=== PATIENT | male | born 2000 | race Caucasian/White ===

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

== ENCOUNTER 2022-07-12 10:51 | Emergency (ER) | payer OTHER, SELFPAY ==
[2022-07-12 11:04] VITALS: BP 100/63; PULSE 77; RESP 16; TEMP 36.7; O2SAT 99; BMI 23.0
[2022-07-12 12:35] LABS: Appearance Urine Clear; Color Urine Yellow; Glucose Urine UA Negative (Negative); Leukocyte Esterase Urine Negative (Negative); Nitrite Urine Negative (Negative); Specific Gravity - Urine 1.025 (1.005-1.025); Urine Blood Negative (Negative); Urine Ketones Negative (Negative); Urine Protein Negative (Neg-Trace)
--- NOTE | 2022-07-12 13:02 | ED.MALEGU ---
HPI - Male Genitourinary General Chief complaint: Urogenital-Male Stated complaint: testicle pain Time Seen by Provider: 07/12/22 12:12 Source: patient Mode of arrival: ambulatory Limitations: no limitations History of Present Illness HPI Narrative: Patient presents to the emergency department for evaluation of left testicular pain and swelling for about 2 days. Per his report, ejaculations has been more thick than normal, but denies any abnormal penile discharge outside of ejaculation. Denies fevers, chills, abdominal pain, nausea, vomiting. Patient does report that a few months ago he was treated for a gonorrhea infection. He is currently sexually active with reportedly 1 partner, who was also previously treated for gonorrhea infection. He states a few days ago that his significant other accidentally kneed him in the scrotum and it was very painful at that time. Related Data Previous Rx's Medication Instructions Recorded doxycycline hyclate 100 mg capsule 100 mg PO BID 10 days #20 caps 09/26/21 doxycycline hyclate 100 mg tablet 100 mg PO BID 7 days #14 tabs 07/12/22 Allergies Allergy/AdvReac Type Severity Reaction Status Date / Time No Known Allergies Allergy Verified 09/26/21 19:09 Review of Systems Review of Systems: Constitutional: No fever, chills, weakness or fatigue. Skin: No rash or itching. Cardiovascular: No chest pain, Respiratory: No shortness of breath, or cough Gastrointestinal: No nausea, vomiting or diarrhea. No abdominal pain Genitourinary: No burning micturition. No urinary frequency or incontinence. Positive testicular pain and swelling Musculoskeletal: No muscle pain, back pain, joint pain or stiffness. Psychiatric: No depression or anxiety. Yes all other systems are reviewed and are negative [facility] Past Medical History Attestation statement: The following information was validated with the patient. Source: old records reviewed Social History Social History Advance Directives: No Advance Directives Information Provided: No Physical Exam Vital Signs: Vital Signs: Last Vital Signs Temp 98.1 F 07/12/22 11:04 Pulse 77 07/12/22 11:04 Resp 16 07/12/22 11:04 BP 100/63 07/12/22 11:04 Pulse Ox 99 07/12/22 11:04 O2 Del Method 07/12/22 11:04 BMI result Body Mass Index 23.0 Appearance: Alert.?Oriented to person, place and time. No acute distress.?Normal affect. Eyes: Pupils equal, round and reactive to light.? ENT: Pharynx normal.?? Neck: Normal inspection.? Neck supple.?? CVS: Heart sounds normal. Normal heart rate and rhythm.? Pulses normal.?? Respiratory: No respiratory distress.? Lung sounds clear to auscultation bilaterally?? Abdomen: Soft and non-tender. Normoactive bowel sounds. Genitourinary: Exam performed with ED tach for reimbursement analystSatish. Swelling to the left side of scrotum without external erythema or warmth. Phren sign is positive, cremasteric reflex is positive. No lesions, rashes Skin: Skin warm and dry.? Normal skin color.? ? Extremities: No lower extremity edema.? Neuro: Moves all extremities spontaneously. Sensation intact bilaterally. Ambulates with normal steady gait. Course Course Course Narrative: Patient is a 21-year-old male with a past medical history of sexually transmitted infection. Presenting to emergency department for evaluation of left testicular pain and swelling. He is overall well-appearing. Vital signs are stable he is afebrile and non tachycardic. Urinalysis reveals no evidence of urinary tract infection. Ultrasound reveals mildly edematous and enlarged left epididymal tail with hyperemia suspicious for epididymitis, no evidence of torsion. Discussed with patient common causes of epididymitis include being sexually transmitted infection, trauma, autoimmune. Given patient's recent history of sexually transmitted infection, discussed with patient plan of care for prophylactic treatment of gonorrhea and chlamydia. Patient received injection of ceftriaxone intramuscularly while in the emergency department, and will be discharged home with a prescription for doxycycline. Urinalysis reveals no evidence of urinary tract infection. Discussed supportive care, NSAIDs. Reviewed worrisome signs and symptoms to return back to the emergency department for. Advised outpatient follow-up with primary care provider. All questions were answered, patient was discharged home in stable condition. [facility] - Male Genitourinary Medical Records Attestation: I reviewed the patient's medical records. Lab Data Attestation: I reviewed the patient's lab results. Labs: Lab Results 07/12/22 Range/Units 12:25 Urine Color Yellow Urine Appearance Clear Urine pH 8.0 (5.0-9.0) Ur Specific [place] 1.025 (1.005-1.025) Urine Protein Negative (Neg-Trace) mg/dL Urine Glucose (UA) Negative (Negative) mg/dL Urine Ketones Negative (Negative) mg/dL Urine Blood Negative (Negative) Urine Nitrite Negative (Negative) Ur Leukocyte Esterase Negative (Negative) Imaging Data testicular ultrasound: Radiologist's impression: US/US scrotum doppler IMPRESSION: ? 1. Mildly edematous and enlarged left epididymal tail with hyperemia on color Doppler assessment, suspicious for epididymitis. 2. Right epididymis normal. 3. Bilateral testicles normal. Discharge Plan Discharge Clinical Impression: Acute epididymitis Patient Disposition: Home, Self-Care Instructions: Epididymitis (ED) Additional Instructions: Your urine sample does not show evidence of a UTI/urinary tract infection. Testing for gonorrhea and chlamydia results will be available in 1-3 days. You were treated today with an injection of ceftriaxone, and will complete a 1 week course of doxycycline, this is to cover both chlamydia and gonorrhea infection. As discussed, please wear supportive undergarments to help alleviate pain and pressure to the scrotum. You can take ibuprofen 200 mg, 3 tablets (600mg) every 6-8 hours as needed for pain, in addition to Tylenol 500 mg, 2 tablets (1,000mg) every 4-6 hours as needed for pain, but not to exceed 3 doses daily (3,000mg).? Return to emergency department with any new or worsening symptoms or concerns. Follow-up with your primary care provider next week. Prescriptions: New doxycycline hyclate 100 mg tablet 100 mg PO BID 7 Days Qty: 14 0RF No Action doxycycline hyclate 100 mg capsule 100 mg PO BID 10 Days Qty: 20 0RF Interventions: ED Discharge Assessment Last Done: 07/12/22 13:48 Discharge Date/Time: 07/12/22 13:48
[2022-07-12] MEDS: cefTRIAXone sodium 500 MG, Lidocaine HCl 1 % MPF 1 ML IM (13:28)
[2022-07-13 07:12] LABS: CT PCR DETECTED (Not Detect.); NG PCR NOT DETECTED (Not Detect.)
== END 2022-07-12 13:48 | disposition home or self-care (01) ==
PROVIDERS: Nurse Practitioner Family; Emergency Provider Emergency Medicine
DX: N45.1 Epididymitis (principal); N50.812 Left testicular pain
CPT/HCPCS: 76870; 81003; 87491; 87591; 93975; 96372; 99282; 99284; J0696

== ENCOUNTER 2022-07-14 15:13 | Emergency (ER) | payer OTHER, SELFPAY ==
--- NOTE | ~2022-07-14 | US_ITS ---
EXAMINATION: US SCROTUM CLINICAL INFORMATION: Testicular pain and swelling.. COMPARISON: None TECHNIQUE: A sonogram of the scrotum was performed assessing roblero-scale appearance and color Doppler flow. Spectral Doppler analysis of the arterial and venous flow were performed in the testes bilaterally. FINDINGS: RIGHT: Right testicle measures 4.9 x 2.8 x 2.2 cm, volume 23.2 mL. No focal testicular parenchymal lesions are visualized. Spectral Doppler analysis of the arterial and venous flow is normal in the right testis. Right epididymal head is normal in size. No right hydrocele or varicocele is seen. Right epididymal Doppler flow is normal. LEFT: Left testicle measures 4.5 x 2.8 x 2.7 cm, volume 17.8 mL. The left ovary is slightly heterogeneous but no focal lesion seen. Spectral Doppler analysis of the arterial and venous flow is increased in the left testis. Left epididymal head is normal in size. There is epidural head cyst measuring 4 x 3 x 4 mm. No left hydrocele or varicocele is seen. Left epididymal Doppler flow is increased. US/US scrotum doppler IMPRESSION: Increased vascularity left testes and left epididymis suggestive of epididymoorchitis. Small left epididymal head cysts. Normal right testes and epididymis. Normal Doppler exam of the right testes.
--- NOTE | ~2022-07-14 | US_ITS ---
EXAMINATION: US SCROTUM CLINICAL INFORMATION: Testicular pain and swelling.. COMPARISON: None TECHNIQUE: A sonogram of the scrotum was performed assessing roblero-scale appearance and color Doppler flow. Spectral Doppler analysis of the arterial and venous flow were performed in the testes bilaterally. FINDINGS: RIGHT: Right testicle measures 4.9 x 2.8 x 2.2 cm, volume 23.2 mL. No focal testicular parenchymal lesions are visualized. Spectral Doppler analysis of the arterial and venous flow is normal in the right testis. Right epididymal head is normal in size. No right hydrocele or varicocele is seen. Right epididymal Doppler flow is normal. LEFT: Left testicle measures 4.5 x 2.8 x 2.7 cm, volume 17.8 mL. The left ovary is slightly heterogeneous but no focal lesion seen. Spectral Doppler analysis of the arterial and venous flow is increased in the left testis. Left epididymal head is normal in size. There is epidural head cyst measuring 4 x 3 x 4 mm. No left hydrocele or varicocele is seen. Left epididymal Doppler flow is increased. US/US scrotum IMPRESSION: Increased vascularity left testes and left epididymis suggestive of epididymoorchitis. Small left epididymal head cysts. Normal right testes and epididymis. Normal Doppler exam of the right testes.
[2022-07-14 15:38] VITALS: BP 118/57; PULSE 85; RESP 20; TEMP 37.2; O2SAT 98; BMI 23.0
--- NOTE | 2022-07-14 17:20 | ED_ITS ---
HPI - Male Genitourinary General Chief complaint: Urogenital-Male Stated complaint: Testicle swelling Time Seen by Provider: 07/14/22 17:19 Source: patient Mode of arrival: ambulatory Limitations: no limitations History of Present Illness HPI Narrative: 21-year-old male presenting to the emergency department for the 2nd time in a week with complaints of testicular swelling and discomfort. Patient was recently evaluated in our emergency department told that he had epididymitis, was given a shot and discharged home on antibiotic which he tells me he is not taking. Patient tells me the pain continues and it is not getting better. Patient denies penile discharge, urinary frequency, urgency, dysuria, fevers, chills, abdominal pain, nausea, vomiting, chest pain, shortness of breath. Patient does have a history of chlamydia back in September of 2021. Initially he contributed this discomfort to someone kneeling him in the scrotum. Related Data Previous Rx's Medication Instructions Recorded doxycycline hyclate 100 mg capsule 100 mg PO BID 10 days #20 caps 09/26/21 doxycycline hyclate 100 mg tablet 100 mg PO BID 7 days #14 tabs 07/12/22 doxycycline hyclate 100 mg capsule 100 mg PO BID 7 days #14 caps 07/14/22 metronidazole 500 mg tablet 500 mg PO BID 7 days #14 tabs 07/14/22 Allergies Allergy/AdvReac Type Severity Reaction Status Date / Time No Known Allergies Allergy Verified 09/26/21 19:09 Review of Systems Review of Systems: Constitutional : No Weight loss, No Fever, No Chills, No Fatigue, No Malaise ENT/Mouth : No sore throat, No Rhinorrhea Eyes: No Eye Pain, No Swelling, No Redness Cardiovascular : No Chest Pain, No SOB, No Dyspnea on Exertion, No Orthopnea, No Edema, No Palpitations Respiratory : No Cough, No Sputum, No Wheezing Gastrointestinal : No Nausea, No Vomiting, No Diarrhea, No Constipation, No abdominal Pain, No Hematochezia, No Melena Genitourinary : No Dysuria, No Urinary Frequency, No Hematuria, + testicular swelling Musculoskeletal : No joint pain, No Myalgias, No Joint Swelling Skin : No Skin Lesions, No rash Neuro : No Weakness, No Numbness, No Dizziness, No Headache Psych : No Anxiety/Panic, No Depression All other systems reviewed and are negative Yes all other systems are reviewed and are negative [facility] Past Medical History Attestation statement: The following information was validated with the patient. Source: old records reviewed and nursing notes reviewed Social History Social History Advance Directives: No Advance Directives Information Provided: No Physical Exam Vital Signs: Vital Signs: Last Vital Signs Temp 98.8 F 07/14/22 17: Pulse 93 07/14/22 17:22 Resp 18 07/14/22 17:22 BP 150/83 H 07/14/22 17:22 Pulse Ox 99 07/14/22 17:22 O2 Del Method 07/14/22 17:22 BMI result Body Mass Index 23.0 vss Appearance: Alert.? Oriented X3.? No acute distress.? Head: Normocephalic, atraumatic, no step-offs or deformities Eyes: Pupils equal, round and reactive to light.? ENT: Pharynx normal.? Neck: Normal inspection.? Neck supple.? CVS: Normal heart rate and rhythm.? Pulses normal.? Respiratory: No respiratory distress.? Breath sounds normal.? Abdomen: Soft and nontender.? Skin: Skin warm and dry.? Normal skin color.? Normal skin turgor.? Extremities: No lower extremity edema.? No calf ttp. 5/5 strength to bilateral upper and lower extremities Sensative: ?Swelling to the left side of scrotum without external erythema or warmth. Phren sign is positive, cremasteric reflex is positive.? No lesions, rashes Neuro: Oriented X 3.? No motor deficit.? No sensory deficit. CN 2-12 intact Course Reevaluation(s) Reevaluation #1: Upon review serology it is noted that on 07/12/2022 patient had chlamydia and gonorrhea studies done, patient noted to be positive for chlamydia. However again, patient not taking his doxycycline therefore likely patient is still having symptoms. Time: 17:26 Reevaluation #2: US scrotum pending. Time: 17:30 Reevaluation #3: US consistent with epididymal orchitis and a left epididymal head cyst. No signs of torsion. Normal right testes and epididymis. Patient will be discharged home with doxycycline, metronidazole, advised to take ibuprofen every 6 hours, Tylenol every 4 as needed for pain or discomfort. Comfortable with discharge home with prompt PCP follow-up. Will also give him follow-up with urology in case needed. Time: 18:48 MDM - Male Genitourinary MDM Narrative Medical decision making narrative: 1723 21 year old male presents w/ persistent testicular discomfort and swelling X6 days. Was dx with epididymitis was given ceftriaxone and doxycycline for home however patient has not been compliant with the doxycycline. Based off of chart review patient had a scrotal ultrasound done which is normal on 07/12/2022, was given ceftriaxone here I a.m. and was given doxycycline for home however patient reports he is not currently taking that. Patient does have a remote history of chlamydia was diagnosed with chlamydia 09/26/2021. Patient was discharged physical examination significant for ?Swelling to the left side of scrotum without external erythema or warmth. Phren sign is positive, cremasteric reflex is positive.? No lesions, rashes plan at this time is ultrasound to rule out torsion, although he had a negative ultrasound a few days ago it is still possible that patient may have intermittent torsion. Medical Records Attestation: I reviewed the patient's medical records. Lab Data Attestation: I reviewed the patient's lab results. Critical Care Time Critical Care Time Critical Care Time: No Discharge Plan Discharge Clinical Impression: Epididymitis, Chlamydia, Acute epididymo-orchitis Patient Disposition: Home, Self-Care Instructions: Epididymitis (ED) Additional Instructions: Take your medications as prescribed. If you were prescribed antibiotics today, it is important that you take your medication to their entirety, do not skip any doses, do not finish them early. Follow-up with your primary care provider this week. Return to the emergency department with new or worsening symptoms. Such as fevers, chills, chest pain, shortness of breath, nausea, vomiting, dizziness, headache, vision changes, lethargy In case of emergency call 911 Doxycycline has been sent to her pharmacy, this covers for chlamydia, you must take this medication. Metronidazole as another antibiotic that has been sent to your pharmacy in this covers for another at sexually transmitted infection that is very common called Trichomonas. In the meantime you should practice abst inence from sex or wear protection if your going to have intercourse although not recommended. You should follow-up with your PCP or go to a community clinic to have full panel STD testing to get tested for hepatitis, HIV. ?US/US scrotum IMPRESSION: Increased vascularity left testes and left epididymis suggestive of epididymoorchitis. ? Small left epididymal head cysts. ? Normal right testes and epididymis. Normal Doppler exam of the right testes. Prescriptions: New doxycycline hyclate 100 mg capsule 100 mg PO BID 7 Days Qty: 14 0RF metronidazole 500 mg tablet 500 mg PO BID 7 Days Qty: 14 0RF No Action doxycycline hyclate 100 mg capsule 100 mg PO BID 10 Days Qty: 20 0RF doxycycline hyclate 100 mg tablet 100 mg PO BID 7 Days Qty: 14 0RF Referrals: Physician,None [Primary Care Provider] - 2 days Haim Peres MD [Physician] - 1 week
[2022-07-14 17:22] VITALS: BP 150/83; PULSE 93; RESP 18; TEMP 37.1; O2SAT 99
== END 2022-07-14 19:01 | disposition home or self-care (01) ==
PROVIDERS: Emergency Provider Internal Medicine
DX: A56.19 Other chlamydial genitourinary infection (principal); N45.3 Epididymo-orchitis; N50.812 Left testicular pain
CPT/HCPCS: 76870; 93975; 99283; 99284

== ENCOUNTER 2022-08-04 14:00 | Emergency (ER) | payer OTHER, SELFPAY ==
[2022-08-04 14:05] VITALS: BP 103/57; PULSE 93; RESP 15; TEMP 36.6; O2SAT 98; BMI 23.0
== END 2022-08-04 20:07 | disposition left against medical advice (07) ==
PROVIDERS: Emergency Provider Emergency Medicine
DX: R36.9 Urethral discharge, unspecified (principal); N48.89 Other specified disorders of penis
CPT/HCPCS: 99281

== ENCOUNTER 2022-10-17 13:08 | Emergency (ER) | payer OTHER, SELFPAY ==
--- NOTE | 2022-10-17 13:16 | ED_ITS ---
HPI - Male Genitourinary General Chief complaint: Urogenital-Male <Lea Almaraz NP - Last Filed: 10/17/22 13:18> Stated complaint: std check <Lea Almaraz NP - Last Filed: 10/17/22 13:18> Time Seen by Provider: 10/17/22 13:23 <Lea Almaraz NP - Last Filed: 10/17/22 13:18> Source: patient <KAMRAN Dunbar - Last Filed: 10/17/22 14:51> Mode of arrival: ambulatory <KAMRAN Dunbar Last Filed: 10/17/22 14:51> Limitations: no limitations <KAMRAN Dunbar Last Filed: 10/17/22 14:51> History of Present Illness HPI Narrative: 22-year-old male presents to the ER for evaluation of possible STDs. He presents with his girlfriend who is having some vaginal discharge. He states the tip of his penis is raw and sore with tiny little cuts on it. Sometimes they bleed. He reports intermittent clear discharge after he urinates. He admits to not completing his abx for chlamydia when he was last diagnosed in July. He has had chlamydia twice. He denies any testicular pain or swelling. No fever or chills. No ulcerations or genital lesions. <KAMRAN Dunbar - Last Filed: 10/17/22 14:51> MD Complaint: penile discharge and other (Genital sores) <KAMRAN Dunbar Last Filed: 10/17/22 14:51> Onset (ago): week(s) <KAMRAN Dunbar Last Filed: 10/17/22 14:51> Duration: constant <KAMRAN Dunbar Last Filed: 10/17/22 14:51> Location: penis <KAMRAN Dunbar Last Filed: 10/17/22 14:51> Severity: moderate <KAMRAN Dunbar Last Filed: 10/17/22 14:51> Quality: sharp <KAMRAN Dunbar Last Filed: 10/17/22 14:51> Relieving factors: none <KAMRAN Dunbar Last Filed: 10/17/22 14:51> Exacerbating factors: sexual intercourse <KAMRAN Dunbar - Last Filed: 10/17/22 14:51> Context: known STD exposure <KAMRAN Dunbar - Last Filed: 10/17/22 14:51> Associated symptoms: Reports discharge and rash <KAMRAN Dunbar - Last Filed: 10/17/22 14:51> Related Data Sexually active: Yes <KAMRAN Dunbar - Last Filed: 10/17/22 14:51> Home medications: Previous Rx's Medication Instructions Recorded doxycycline hyclate 100 mg capsule 100 mg PO BID 10 days #20 caps 09/26/21 doxycycline hyclate 100 mg tablet 100 mg PO BID 7 days #14 tabs 07/12/22 doxycycline hyclate 100 mg capsule 100 mg PO BID 7 days #14 caps 07/14/22 metronidazole 500 mg tablet 500 mg PO BID 7 days #14 tabs 07/14/22 clotrimazole 1 % topical cream 1 appl topical BID 2 weeks #45 10/17/22 grams doxycycline monohydrate 100 mg 100 mg PO BID #14 caps 10/17/22 capsule <Lea Almaraz NP - Last Filed: 10/17/22 13:18> Allergies/Adverse reactions: Allergies Allergy/AdvReac Type Severity Reaction Status Date / Time No Known Allergies Allergy Verified 09/26/21 19:09 <Lea Almaraz NP - Last Filed: 10/17/22 13:18> Review of Systems Review of Systems: Yes all other systems are reviewed and are negative <KAMRAN Dunbar - Last Filed: 10/17/22 14:51> REPLACED BY [facility] Social History Social History: Social History Advance Directives: No Advance Directives Information Provided: No <Lea Almaraz NP - Last Filed: 10/17/22 13:18> Physical Exam Vital Signs: Vital Signs: Last Vital Signs Temp 98.7 F 10/17/22 13:17 Pulse 84 10/17/22 13:17 Resp 18 10/17/22 13:17 BP 115/78 10/17/22 13:17 Pulse Ox 98 10/17/22 13:17 O2 Del Method 10/17/22 13:17 BMI result Body Mass Index 23.0 <Lea Almaraz NP - Last Filed: 10/17/22 13:18> Vital Signs: Last Vital Signs Temp 98.7 F 10/17/22 13:17 Pulse 84 10/17/22 13:17 Resp 18 10/17/22 13:17 BP 115/78 10/17/22 13:17 Pulse Ox 98 10/17/22 13:17 O2 Del Method 10/17/22 13:17 BMI result Body Mass Index 23.0 <KAMRAN Dunbar - Last Filed: 10/17/22 14:51> Appearance: Alert. Oriented X3. No acute distress. HEENT: normal inspection CVS: Normal heart rate and rhythm. Pulses normal. Respiratory: No respiratory distress. Skin: Skin warm and dry. Normal skin color. Normal skin turgor. No rashes. ABD: Soft, flat, nontender, nondistended. : Uncircumcised penis with the tip with dry, flakey, erythematous skin with excoriation and tiny linear cuts without discharge or bleeding. pain with retraction of the foreskin Extremities: Normal inspection x4 Neuro: Oriented X 3. Nonfocal <KAMRAN Dunbar - Last Filed: 10/17/22 14:51> Course Course Course Narrative: This is a rapid medical exam. Deferred additional HPI, ROS, PE to primary provider. 22yo male healthy here with pain to the tip of the penis and cuts . NO rash/bumps/lesions. Wants to be tested for STI's. Will send testing for CTNG. Defer exam in triage. VSS <Lea Almaraz NP - Last Filed: 10/17/22 13:18> Reevaluation(s) Reevaluation #1: 22-year-old male with history of chlamydia x2 presents to the ER for evaluation of ?cuts? on the tip of his penis. Has some mild urethral discharge that has been intermittent over the course of months. Did not complete his chlamydia treatment in July. Will send urinalysis today and CT and GB. Will treat empirically. His exam is also consistent with possible fungal infection so will prescribe topical fungal agent as well. Patient was encouraged to follow up with [facility] locally for re-evaluation and to ensure complete resolution and additional testing. Patient agrees with plan. Stable for discharge home. <KAMRAN Dunbar - Last Filed: 10/17/22 14:51> Medications Administered Discontinued Medications Generic Name Dose Route Start Last Admin Trade Name Freq PRN Reason Stop Dose Admin Ceftriaxone Sodium 500 mg/ 0 mg 10/17/22 14:02 10/17/22 14:33 Lidocaine HCl 1 ml IM 10/17/22 14:03 1 kit ONCE ONE Administration <Lea Almaraz NP - Last Filed: 10/17/22 13:18> Medications Administered Discontinued Medications Generic Name Dose Route Start Last Admin Trade Name Freq PRN Reason Stop Dose Admin Ceftriaxone Sodium 500 mg/ 0 mg 10/17/22 14:02 10/17/22 14:33 Lidocaine HCl 1 ml IM 10/17/22 14:03 1 kit ONCE ONE Administration <KAMRAN Dunbar - Last Filed: 10/17/22 14:51> Medical Decision Making Medical Decision Making MDM Narrative: 22-year-old male presents to the ER for evaluation of STIs. <KAMRAN Dunbar - Last Filed: 10/17/22 14:51> Differential Diagnosis Differential Diagnoses: The differential diagnosis associated with the presentation includes <KAMRAN Dunbar - Last Filed: 10/17/22 14:51> Urethritis, epididymitis, HSV, bacterial infection, yeast infection, balanitis <KAMRAN Dunbar - Last Filed: 10/17/22 14:51> Independent Historian Clinical information obtained from an independent historian. History obtained from or confirmed by: Friend <KAMRAN Dunbar - Last Filed: 10/17/22 14:51> External Record Review External record reviewed: Outpatient record and Prior outpatient labs <KAMRAN Dunbar - Last Filed: 10/17/22 14:51> Prescription Management I considered prescription management with: Antiviral and Antibiotic <KAMRAN Dunbar - Last Filed: 10/17/22 14:51> Enter on a needed, exam is not consistent with HSV. Antibiotics prescribed as directed. <KAMRAN Dunbar - Last Filed: 10/17/22 14:51> Social Determinants Patient?s care significantly limited by Social Determinants of Health including: Other Social Determinant of Health <KAMRAN Dunbar - Last Filed: 10/17/22 14:51> No follow-up. In complete understanding of importance of completion of antibiotic course to completely eradicate and treat bacterial infections. <KAMRAN Dunbar - Last Filed: 10/17/22 14:51> Critical Care Time Critical Care Time Critical Care Time: No <KAMRAN Dunbar - Last Filed: 10/17/22 14:51> Discharge Plan Discharge Clinical Impression: Urethritis <Lea Almaraz NP - Last Filed: 10/17/22 13:18> Patient Disposition: Home, Self-Care <Lea Almaraz NP - Last Filed: 10/17/22 13:18> Instructions: Nonspecific Urethritis in Men (ED) <Lea Almaraz NP - Last Filed: 10/17/22 13:18> Additional Instructions: Take the prescribed oral antibiotic as directed. Complete the entire course and do not miss any doses. Take your 1st dose tonight. Use the prescribed cream to your penis for the next 2 weeks. Use it twice per day. No sexual activity for at least 1 week. Recommend following up with a local [facility] for re-evaluation and additional STI testing. If you develop new or worsening symptoms call 911 or come back to the ER for further evaluation. <Lea Almaraz NP - Last Filed: 10/17/22 13:18> Prescriptions: New doxycycline monohydrate 100 mg capsule 100 mg PO BID Qty: 14 0RF clotrimazole 1 % cream 1 appl topical BID 14 Days Qty: 45 0RF No Action doxycycline hyclate 100 mg capsule 100 mg PO BID 10 Days Qty: 20 0RF doxycycline hyclate 100 mg tablet 100 mg PO BID 7 Days Qty: 14 0RF doxycycline hyclate 100 mg capsule 100 mg PO BID 7 Days Qty: 14 0RF metronidazole 500 mg tablet 500 mg PO BID 7 Days Qty: 14 0RF <Lea Almaraz NP - Last Filed: 10/17/22 13:18> Referrals: [facility] [Provider Group] <Lea Almaraz NP - Last Filed: 10/17/22 13:18>
[2022-10-17 13:17] VITALS: BP 115/78; PULSE 84; RESP 18; TEMP 37.1; O2SAT 98; BMI 23.0
[2022-10-17] MEDS: cefTRIAXone sodium 500 MG, Lidocaine HCl 1 % MPF 1 ML IM (14:33)
[2022-10-17 18:22] LABS: CT PCR NOT DETECTED (Not Detect.); NG PCR NOT DETECTED (Not Detect.)
== END 2022-10-17 14:56 | disposition home or self-care (01) ==
PROVIDERS: Nurse Practitioner Family; Emergency Provider Emergency Medicine
DX: N34.2 Other urethritis (principal); N48.89 Other specified disorders of penis; Z20.2 Contact with and (suspected) exposure to infections with a predominantly sexual mode of transmission
CPT/HCPCS: 0353U; 96372; 99282; 99283; 99284; J0696

== ENCOUNTER 2024-08-10 14:28 | Emergency (ER) | payer MEDICAID, SELFPAY ==
[2024-08-10 14:40] VITALS: BP 118/71; PULSE 74; RESP 16; TEMP 36.8; O2SAT 98; BMI 32.2
--- NOTE | 2024-08-10 14:42 | ED.MALEGU ---
HPI - Male Genitourinary General Chief complaint: General Medical Stated complaint: std testing Related Data Previous Rx's ?Medication ?Instructions ?Recorded doxycycline hyclate 100 mg capsule 100 mg PO BID 10 days #20 caps 09/26/21 doxycycline hyclate 100 mg tablet 100 mg PO BID 7 days #14 tabs 07/12/22 doxycycline hyclate 100 mg capsule 100 mg PO BID 7 days #14 caps 07/14/22 metronidazole 500 mg tablet 500 mg PO BID 7 days #14 tabs 07/14/22 clotrimazole 1 % topical cream 1 appl topical BID 2 weeks #45 10/17/22 grams doxycycline monohydrate 100 mg 100 mg PO BID #14 caps 10/17/22 capsule Allergies Allergy/AdvReac Type Severity Reaction Status Date / Time No Known Allergies Allergy Verified 08/10/24 14:42 [facility] Social History Social History Do you have a plan to hurt others: No Plan Physical Exam Vital Signs: Vital Signs: Last Vital Signs Temp 98.2 F 08/10/24 14:40 Pulse 74 08/10/24 14:40 Resp 16 08/10/24 14:40 BP 118/71 08/10/24 14:40 Pulse Ox 98 08/10/24 14:40 O2 Del Method Room Air 08/10/24 14:40 BMI result Body Mass Index 32.2 Course Course Course Narrative: This is a Rapid Medical Examination (RME) performed by Huyen Cox PA-C in triage. Full HPI, ROS, assessment and treatment plan per primary provider in the Main ED. 24 yo male here for eval of clear penile discharge and itching. reports recent unprotected intercourse w/ new partner. hx of chlamydia, treated for this in the past. denies fever. states my sperm is hard . Plan: UA and CT/NG Reevaluation(s) Reevaluation #1: Patient left the emergency department before myself or any of the other clinicians could review or explain physical exam findings, test results, need or lack there of for additional testing, treatment options, or a treatment plan. Medical Decision Making Lab Data Labs: Lab Results 08/10/24 Range/Units 15:48 Urine Color Yellow Urine Appearance Clear Urine pH 7.0 (5.0-9.0) Ur Specific [place] 1.025 (1.005-1.025) Urine Protein Negative (Neg-Trace) mg/dL Urine Glucose (UA) Negative (Negative) mg/dL Urine Ketones Negative (Negative) mg/dL Urine Blood Negative (Negative) Urine Nitrite Negative (Negative) Ur Leukocyte Esterase Negative (Negative) Chlam trachomat DNA PCR NOT DETECTED (Not Detect.) N.gonorrhoeae DNA (PCR) NOT DETECTED (Not Detect.) Discharge Plan Discharge Clinical Impression: Encounter for assessment of STD exposure Patient Disposition: Left W/O Completing Treatment Prescriptions: No Action doxycycline hyclate 100 mg capsule 100 mg PO BID 10 Days Qty: 20 0RF doxycycline monohydrate 100 mg capsule 100 mg PO BID Qty: 14 0RF clotrimazole 1 % cream 1 appl topical BID 14 Days Qty: 45 0RF doxycycline hyclate 100 mg tablet 100 mg PO BID 7 Days Qty: 14 0RF doxycycline hyclate 100 mg capsule 100 mg PO BID 7 Days Qty: 14 0RF metronidazole 500 mg tablet 500 mg PO BID 7 Days Qty: 14 0RF
[2024-08-10 15:59] LABS: Appearance Urine Clear; Color Urine Yellow; Glucose Urine UA Negative (Negative); Leukocyte Esterase Urine Negative (Negative); Nitrite Urine Negative (Negative); Specific Gravity - Urine 1.025 (1.005-1.025); Urine Blood Negative (Negative); Urine Ketones Negative (Negative); Urine Protein Negative (Neg-Trace)
[2024-08-10 18:56] LABS: CT PCR NOT DETECTED (Not Detect.); NG PCR NOT DETECTED (Not Detect.)
== END 2024-08-10 20:46 | disposition left against medical advice (07) ==
LOC: HO.ED 20:26
PROVIDERS: Physician Assistant Medical; Emergency Provider Emergency Medicine Emergency Medical Services
DX: Z20.2 Contact with and (suspected) exposure to infections with a predominantly sexual mode of transmission (principal)
CPT/HCPCS: 81003; 87491; 87591; 99282; 99283